=== PATIENT | male | born 1995 | race Caucasian/White ===

== ENCOUNTER → 2016-09-27 | Outpatient (REF) | LOC: WSOH 09:11 | DX: Z76.89 Persons encountering health services in other specified circumstances (principal) ==

== ENCOUNTER → 2016-10-24 | Outpatient (REF) | LOC: WSOH 09:35 | DX: Z01.89 Encounter for other specified special examinations (principal) ==

== ENCOUNTER 2016-10-31 15:43 | Outpatient (RCR) | payer OTHER | END 2016-11-25 13:52 | LOC: WSOH 15:43 | DX: M54.5 Low back pain (principal); X50.0XXD Overexertion from strenuous movement or load, subsequent encounter; Y99.0 Civilian activity done for income or pay ==

== ENCOUNTER → 2016-11-28 | Outpatient (REF) | LOC: WSOH 08:54 | DX: Z00.00 Encounter for general adult medical examination without abnormal findings (principal) ==